=== PATIENT | female | born 1970 | race Asian ===

== ENCOUNTER 2017-07-17 18:18 | Emergency (ER) | payer MEDICAID ==
[~2017-07-17] VITALS: Ht 162.6 cm; Wt 56.7 kg
[2017-07-17] MEDS ORDERED: Ketorolac 30mg Inj IV ONE (18:45)
[2017-07-17 19:15] VITALS: BP 115/82
[2017-07-17 19:21] LABS: APPEARANCE,URINE CLEAR; KETONES,URINE 2+ (NEGATIVE); LEUKOCYTE ESTERASE ,URINE 1+ (NEGATIVE); NITRITE,URINE NEGATIVE (NEGATIVE); PH,URINE 7 (4.5-8.0); PROTEIN,URINE NEGATIVE (NEGATIVE); UROBILINOGEN,URINE NORMAL MG/DL (0.0-1.0)
[2017-07-17 19:26] LABS: BASOPHILS % (AUTO) 1.5 % (0.0-2.0); EOSINOPHILS % (AUTO) 1.6 % (0.0-3.0); LYMPHOCYTES % (AUTO) 49.6 % (20.0-45.0); MEAN CORPUSCULAR HEMOGLOBIN 27.5 PG (27.0-31.0); MEAN CORPUSCULAR HGB CONC 31.7 G/DL (32.0-36.0); MEAN CORPUSCULAR VOLUME 87 FL (80-99); MEAN PLATELET VOLUME 6.1 FL (6.5-10.1); MONOCYTES % (AUTO) 7.3 % (1.0-10.0); PLATELET COUNT 263 K/UL (150-450); RED BLOOD COUNT 4.79 M/UL (4.20-5.40); RED CELL DISTRIBUTION WIDTH 13.9 % (11.6-14.8); WHITE BLOOD COUNT 7.6 K/UL (4.8-10.8)
[2017-07-17 19:27] LABS: ALANINE AMINOTRANSFERASE 16 U/L (3-33); ALBUMIN/GLOBULIN RATIO 1.2 (1.0-2.7); ANION GAP 13 (5-15); ASPARTATE AMINO TRANSFERASE 27 U/L (5-40); CALCIUM 9.6 mg/dL (8.6-10.2); CARBON DIOXIDE 23 mEQ/L (20-30); CHLORIDE 102 mEQ/L (98-107); CREATININE 0.7 mg/dL (0.5-0.9); GLOMERULAR FILTRATION RATE > 60 mL/min (>60); HEMOLYSIS 3; LIPASE 20 U/L (< 60); POTASSIUM 3.7 mEQ/L (3.4-4.9); SODIUM 138 mEQ/L (135-145); TOTAL PROTEIN 7.6 g/dL (6.6-8.7)
[2017-07-17 19:29] LABS: BACTERIA,URINE OCCASIONAL /HPF; RBC,URINE 0-2 /HPF (0 - 2); SQUAMOUS EPITHELIAL CELL,UR OCCASIONAL /LPF (NONE/OCC); WBC,URINE 0-2 /HPF (0 - 2)
[2017-07-17 21:10] VITALS: BP 120/80
[2017-07-17] MEDS ORDERED: IBUPROFEN600 MG ORAL (21:26)
[2017-07-17] MEDS ORDERED: BENTYL10 MG ORAL (21:26)
[2017-07-17 22:00] VITALS: BP 120/80
[2017-07-17 22:06] VITALS: BP 120/80
--- NOTE | 2017-07-18 12:03 | Diagnostic Imaging Report ---
Indication: Abdominal pain Comparison: None Technique: Contiguous helical CT images through the abdomen and pelvis was performed without intravenous or oral contrast. Axial, coronal and sagittal reconstructions were reformatted. CT Dose: Total DLP: 714 mGycm; Total CTDI volume 7.5, 8.9. Findings: Exam is limited due to lack of intravenous and oral contrast. Abnormalities may be missed. In addition, there is some artifact from patient's arms which she could not raise. The liver, gallbladder, spleen, pancreas, adrenal glands appear normal on this limited noncontrast examination. No renal stones or hydronephrosis. Mild increased density in the renal medullary bilaterally which could be related to medullary nephrocalcinosis. Ureters are normal. Bowel is unremarkable. No bowel obstruction. Normal appendix. No free fluid or free air. In the pelvis, urinary bladder is normal. No lymphadenopathy. Aorta is normal. No abdominal lymphadenopathy. Lung bases are clear. Bones are normal. Impression: No acute abnormalities of the abdomen or else on this limited noncontrast examination. Mild increased density in the renal nodule bilaterally which could be related to medullary nephrocalcinosis.
--- NOTE | 2017-07-18 14:08 | Emergency Room Report ---
History of Present Illness General Chief Complaint: Abdominal Pain Source: Patient Present Illness HPI Patient 47-year-old female who presented after increased abdominal pain. Patient gradual onset of symptoms over the past 2 days. Patient had associated abdominal cramping. Patient stated that she been having irregular periods. Patient denied fever. She denied dysuria. She reported having pain to her lower back which is worse with movement. Patient stated she been having this pain for many years Allergies: Coded Allergies: No Known Allergies (Unverified , 07/17/17) Patient History Past Medical History: see triage record Now: No Reviewed Nursing Documentation: PMH: Agreed, PSxH: Agreed Nursing Documentation-PMH Past Medical History: No Stated History Review of Systems All Other Systems: negative except mentioned in HPI Physical Exam Vital Signs Date Time Temp Pulse Resp B/P (MAP) Pulse Ox O2 Delivery O2 Flow Rate FiO2 07/17/17 18:17 97.9 70 18 127/83 99 Room Air Sp02 EP Interpretation: reviewed, normal General Appearance: normal inspection, well appearing, no apparent distress, alert, GCS 15 Head: atraumatic ENT: normal ENT inspection, hearing grossly normal, normal voice Neck: normal inspection, full range of motion, supple, no bony tend Respiratory: normal inspection, lungs clear, normal breath sounds, no respiratory distress, no retraction, no wheezing Cardiovascular #1: regular rate, rhythm, no edema Gastrointestinal: normal inspection, normal bowel sounds, non tender, soft, no guarding, no hernia Genitourinary: no CVA tenderness Musculoskeletal: normal inspection, decreased range of motion Neurologic: normal inspection, alert, oriented x3, responsive, 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 Differential diagnoses included ischemic bowel, appendicitis, perforated viscus, abdominal aortic aneurysm, inferior myocardial infarction, viral gastroenteritis. Because of complexity of patient' s case laboratory testing and imaging studies were ordered. Laboratory testing was unremarkable. Patient was given Toradol for pain. Patient was noted to have evidence of medullary sponge kidney on CT of abdomen pelvis read by radiology. The patient was given copies of her CT report. Patient was advised followup with her primary care physician for further evaluation and treatment. The patient stated she felt better want to go home Last Vital Signs Date Time Temp Pulse Resp B/P (MAP) Pulse Ox O2 Delivery O2 Flow Rate FiO2 07/17/17 22:06 98.0 80 16 120/80 100 Room Air Status: improved Disposition: HOME, SELF-CARE Condition: Stable Scripts Ibuprofen* (MOTRIN*) 600 Mg Tablet 600 MG ORAL Q8H Y for For Pain, #30 TAB 0 Refills Prov: Bismark Parada 07/17/17 Dicyclomine Hcl* (BENTYL*) 10 Mg Capsule 10 MG ORAL FOUR TIMES A DAY, #20 CAP Prov: Bismark Parada 07/17/17 Referrals: NON PHYSICIAN (PCP) Patient Instructions: Abdominal Pain, Adult Bismark Parada Jul 18, 2017 14:08
== END 2017-07-17 22:30 | disposition home or self-care (01) ==
LOC: EDBD 18:18 → EMR 22:19
DX: R10.9 Unspecified abdominal pain (principal)
CPT/HCPCS: 36415; 74176; 80053; 81003; 81025; 83690; 85025; 96374; 99284; J1885